=== PATIENT | female | born 1975 | race Caucasian/White ===

== ENCOUNTER 2017-09-28 07:20 | Emergency (ER) | payer OTHER ==
[~2017-09-28] VITALS: Ht 165.1 cm; Wt 116.1 kg
[2017-09-28 07:22] VITALS: Ht 165.1 cm; Wt 116.1 kg
[2017-09-28 08:20] LABS: PLATELET COUNT 297 x10^3mcL (130-400)
[2017-09-28 08:27] LABS: RED CELL DISTRIBUTION WIDTH 14.7 % (11.5-14.5)
[2017-09-28 09:04] LABS: BAND NEUTROPHIL 2 % (0-10); BASOPHIL 1 % (0-2); MONOCYTE 5 % (0-7); SEGMENTED NEUTROPHILS 67 % (37-75)
[2017-09-28 09:05] LABS: rbc morphology (normal/abnorm) ABNORMAL (NORMAL)
[2017-09-28 09:08] LABS: CALCIUM 9.2 mg/dL (8.5-10.1); CARBON DIOXIDE 24.6 mmol/L (21-32); CHLORIDE SERUM 104 mmol/L (98-107); CREATININE SERUM 0.9 mg/dL (0.6-1.0); GFR1 > 60 mL/min; GLUCOSE SERUM 115 mg/dL (74-106); POTASSIUM SERUM 4.2 mmol/L (3.5-5.1); SODIUM SERUM 136 mmol/L (136-145)
[2017-09-28 09:13] LABS: ALBUMIN 3.4 g/dL (3.4-5.0); ALKALINE PHOSPHATASE 103 U/L (46-116); ALT/SGPT 15 U/L (14-59); AST/SGOT 21 U/L (15-37); TOTAL PROTEIN, SERUM 7.4 g/dL (6.4-8.2)
[2017-09-28 11:29] VITALS: BP 136/82
== END 2017-09-28 11:29 | disposition home or self-care (01) ==
LOC: ED 07:20
PROVIDERS: Emergency Medicine
DX: H53.8 Other visual disturbances (principal)
CPT/HCPCS: 36415